=== PATIENT | male | born 1985 | race Caucasian/White ===

== ENCOUNTER → 2025-02-17 11:45 | Outpatient (BNVA) | payer SELFPAY | PROVIDERS: Visit Provider Family Medicine | DX: E55.9 Vitamin D deficiency, unspecified (principal); E66.9 Obesity, unspecified; I10 Essential (primary) hypertension; R53.82 Chronic fatigue, unspecified; R53.83 Other fatigue; G47.30 Sleep apnea, unspecified; R40.0 Somnolence; R73.9 Hyperglycemia, unspecified; Z12.5 Encounter for screening for malignant neoplasm of prostate; E29.1 Testicular hypofunction; R79.89 Other specified abnormal findings of blood chemistry | CPT/HCPCS: 80053; 80061; 82306; 82607; 83036; 84403; 84439; 84443; 85025; G0103 ==